=== PATIENT | female | born 1960 | race African-American/Black ===

== ENCOUNTER 2017-09-03 12:07 | Inpatient (IN) | payer OTHER ==
[~2017-09-03] VITALS: Ht 157.5 cm; Wt 88.5 kg
--- NOTE | ~2017-09-03 | EKG ---
[place] [address] [facility] [employer] [address] ELECTROCARDIOGRAM REPORT Name: SHAJI BROWNLEE Room #: 354-P [facility] IN M.R.#: [id number] Admission: 09/03/17 Attend Phys: Richar Cuellar MD Discharge: 09/05/17 Date of : 60 Report #: [id number] THIS REPORT FOR: //name// [facility] ED Test Date: 2017-09-03 Test Time: 13:19:26 Pat Name: SHAJI BROWNLEE Department: Room: [facility] Gender: F Sanitation Engineer: Federica VERMA : 1960 Requested By: Zack Pavon Order Number: [id number] MD: Tyler Santana Measurements Intervals [place] Rate: 63 P: 55 MN: 172 QRS: -5 QRSD: 86 T: -33 QT: 443 QTc: 454 Interpretive Statements Sinus rhythm Left ventricular hypertrophy Abnormal T, consider ischemia, diffuse leads No previous ECG available for comparison Electronically Signed On 09-07-2017 12:56:30 CDT by Tyler Santana [email or web address] <ELECTRONICALLY SIGNED> By: Tyler Santana MD, [facility] 09/07/17 1256 1319 1319 Tyler Santana MD, [facility] /EPI
--- NOTE | ~2017-09-03 | 2DMMODE ---
[facility] [address] [place] [address] 2 D/M-MODE ECHOCARDIOGRAM Name: SHAJI BROWNLEE Room #: 354-P ADM IN M.R.#: [id number] Admission: 09/03/17 Attend Phys: Richar Cuellar MD Discharge: Date of : 60 Date of Service: 09/04/17 1227 Report #: [id number] THIS REPORT FOR: //name// APPROVED REPORT Study performed: 09/04/2017 09:54:16 EXAM: Comprehensive 2D, Doppler, and color-flow Echocardiogram Patient Location: Echo lab Room #: 354 Status: routine BSA: 1.89 HR: 76 bpm BP: 127/67 mmHg Rhythm: NSR Other Information Study Quality: Adequate Indications Syncope Hx: HLP, HTN, DM 2D Dimensions RVDd: 36.83 mm LVEF(%): 63.79 (>50%) IVSd: 12.38 (7-11mm) LVOT Diam: 20.06 (18-24mm) LVDd: 45.27 mm PWd: 11.43 (7-11mm) Ascending Ao: 36.04 (22-36mm) LVDs: 29.63 (25-40mm) Aortic Root: 29.82 mm Davison's LVEF: 63.79 % Volumes Left Atrial Volume (Systole) Single Plane 4CH: 44.90 mL Single Plane 2CH: 62.77 mL LA ESV Index: 31.00 mL/m2 Aortic Valve AoV Peak Benedicto.: 2.02 m/s AO Peak Gr.: 16.27 mmHg LVOT Max P.30 mmHg LVOT Max V: 1.26 m/s ROSANA Vmax: 1.96 cm2 Mitral Valve E/A Ratio: 1.2 [facility] [place] [address] 2 D/M-MODE ECHOCARDIOGRAM Name: KEMCHRISITA ANGELO Room #: 354-[facility] IN .R.#: [id number] Admission: 09/03/17 Attend Phys: Richar Cuellar MD Discharge: Date of : 60 Date of Service: 09/04/17 1227 Report #: [id number] MV Decel. Time: 212.09 ms MV E Max Benedicto.: 0.92 m/s MV A Benedicto.: 0.78 m/s MV PHT: 61.51 ms IVRT: 69.20 ms Pulmonary Valve PV Peak Benedicto.: 1.07 m/s PV Peak Gr.: 4.56 mmHg Pulmonary Vein P Vein S: 0.68 m/s P Vein A: 0.27 m/s P Vein D: 0.39 m/s P Vein A Dur.: 106.1 msec P Vein S/D Ratio: 1.74 Tricuspid Valve TR Peak Benedicto.: 2.92 m/s RAP Estimate: 5.00 mmHg TR Peak Gr.: 34.21 mmHg PA Pressure: 39.00 mmHg Left Ventricle The left ventricle is normal size. Mild concentric left ventricular hypertrophy. The left ventricular systolic function is normal. LVEF is 55-60%. Grade II - pseudonormal filling dynamics. Right Ventricle The right ventricle is normal size. The right ventricular systolic function is normal. Atria The left atrium size is normal. The right atrium size is normal. Aortic Valve The Aortic valve is sclerotic. No aortic regurgitation is present. There is no aortic valvular stenosis. Mitral Valve The mitral valve is normal in structure. Trace to mild mitral regurgitation. No evidence of mitral valve stenosis. Tricuspid Valve The tricuspid valve is normal in structure. Mild tricuspid regurgitation. Estimated PAP 39 mmHg. Pulmonic Valve The pulmonary valve is normal in structure. There is no pulmonic [facility] [address] [place] [address] 2 D/M-MODE ECHOCARDIOGRAM Name: SHAJI BROWNLEE Room #: 354-P [facility] IN [facility]#: [id number] Admission: 09/03/17 Attend Phys: Richar Cuellar MD Discharge: Date of : 60 Date of Service: 09/04/17 1227 Report #: [id number] valvular regurgitation. Great Vessels The aortic root is normal in size. The ascending aorta is normal in size. IVC is normal in size and collapses >50% with inspiration. Pericardium There is no pericardial effusion. <Conclusion> The left ventricle is normal size. LVEF is 55-60%. Grade II - pseudonormal filling dynamics. The right ventricle is normal size. The left atrium size is normal. The Aortic valve is sclerotic. There is no aortic valvular stenosis. Trace to mild mitral regurgitation. Mild tricuspid regurgitation. Estimated PAP 39 mmHg. The aortic root is normal in size. There is no pericardial effusion. <ELECTRONICALLY SIGNED> By: Mark Ferreira MD, FACC 09/04/17 1227 122 26 Mark Ferreira MD, FACC /INF
--- NOTE | ~2017-09-03 | EEG ---
[facility] [address] [place] [address] ELECTROENCEPHALOGRAM Name: SHAJI BROWNLEE Room #: 354-P [facility] IN M.R.#: [id number] Admission: 09/03/17 Attend Phys: Richar Cuellar MD Discharge: 09/05/17 Date of : 60 Report #: [id number] THIS REPORT FOR: //name// CC: Richar Polojennifer Louise DATE OF SERVICE: 09/04/2017 This patient is being evaluated for syncope. EEG was done by placing the electrodes by standard 10-20 system of electrode placement. Both referential and sequential montages were used for recording. Background activity in this patient's EEG is about 11 Hz and 40 microvolt. The patient went to sleep that is associated with bilaterally symmetrical slowing and vertex sharp waves. Photic stimulation is unremarkable. Throughout the record, no active epileptiform activity was noticed. IMPRESSION: This patient's EEG is within normal limit. Thank you very much for this referral. <ELECTRONICALLY SIGNED> By: Alvino Wright MD 09/05/17 2135 0805 [id number] Alvino Wright MD /nt
--- NOTE | ~2017-09-03 | HC ---
[facility] [place] [address] CONSULTATION Name: SHAJI BROWNLEE Room #: 354-P [facility] IN M.R.#: [id number] Admission: 09/03/17 Attend Phys: Richar Cuellar MD Discharge: 09/05/17 Date of : 60 Report #: [id number] THIS REPORT FOR: //name// CC: Richar Louise DATE OF SERVICE: 09/04/2017 HISTORY OF PRESENT ILLNESS: This is a 56-year-old female patient who was evaluated by me because she indicates that she had a history of a fall. She indicates she was walking, felt dizzy and the next thing she knows she was on the floor. She did hit her face. She was evaluated in the emergency room. She said she did not have this kind of episode before. She does not know any tonic-clonic activity, but she was by herself and there was no witness to this episode. REVIEW OF SYSTEMS: Indicate that this patient has diabetes. Her blood sugar sometime can go low. She does not know what her blood sugar was at that time. Her blood pressure also fluctuates. When she came to emergency room, her blood pressure was high. She denies this kind of episode before. She was feeling hungry when this episode happened. She also has a history of hyperlipidemia. She is feeling mostly back to her baseline and she is not having any new eye, ENT, cardiac, respiratory, GI, , musculoskeletal, constitutional, dermatological, hematological, psychiatric, throat, allergic symptom associated with present symptomatology. She is a diabetic. PAST MEDICAL HISTORY: Negative for stroke. FAMILY HISTORY: Negative for early age stroke. SOCIAL HISTORY: She does not drink alcohol. PHYSICAL EXAMINATION: The patient's examinations indicate she is alert, responsive, able to follow simple and complex command. Her speech, concentration, fund of knowledge and memory is at her baseline and she is oriented. Cranial nerve examination 2-12 looks unremarkable. Strength, sensation, reflexes and tone looks symmetrical. There is no cerebellar sign. I could not look at the fundus very well. There is no meningeal sign. There is no carotid bruit. There is no thyroid mass. Pulses appeared to be palpable and she has no edema, cyanosis, or jaundice. She is a reasonably well-developed individual who does not have any dysmorphic features of eyes, ears and face. Her vision and hearing looks adequate. Her last blood pressure was 127/67, pulse is 66, respirations 16, and temperature is 98.8. LABORATORY DATA: Her white count is normal and her sodium is normal, but she has a pretty abnormal lipid profile. She did have a CT scan of the head which [address] [address] CONSULTATION Name: SHAJI BROWNLEE Room #: 354-P [facility] IN M.R.#: [id number] Admission: 09/03/17 Attend Phys: Richar Cuellar MD Discharge: 09/05/17 Date of : 60 Report #: [id number] was unremarkable. IMPRESSION: Most likely her episode was either related to her diabetes or hypertension or any other systemic problem. It is unlikely that it was because of neurological causes. However, she has numerous vascular risk factors and is predisposed to have any of the neurological causes. Because of that, we will go ahead and do some workup. I will go ahead and do an MRI in this patient and an EEG. If that is negative, I do not believe further neurological workup will be indicated in this patient. RECOMMENDATIONS: 1. MRI of the brain. 2. An EEG. 3. I think the emphasis should be on looking for any systemic cause for her problem, especially related to diabetes, hypertension and heart. I will defer that further evaluation and management to you. I discussed all of it with the patient and she is agreeable with this plan. <ELECTRONICALLY SIGNED> By: Alvino Wright MD 09/05/17 2134 0832 0859 Alvino Wright MD /nt
--- NOTE | ~2017-09-03 | HC ---
[facility] [place] [address] [place] [address] CONSULTATION Name: SHAJI BROWNLEE Room #: 354-P [facility] IN M.R.#: [id number] Admission: 09/03/17 Attend Phys: Richar Cuellar MD Discharge: 09/05/17 Date of : 60 Report #: [id number] THIS REPORT FOR: //name// CC: Richar Louise REASON FOR CONSULTATION: Syncope. HISTORY OF PRESENT ILLNESS: This is a very pleasant 56-year-old female patient who has never had a syncopal episode before. She does have diabetes and hypertension as well as dyslipidemia, but was brought to the [facility] Emergency Room following a fall. The patient stated that she had felt hungry, although her blood sugar was 121 at that time and then noted that she was getting somewhat lightheaded. She has noticed her visual field tunneling in and then she passed out and hit the floor quite significantly, damaging her teeth and her nose. She did not have any apparent seizure activity; had no palpitations, chest tightness, heaviness or fullness prior to the episode. Denies any significant other symptoms. She had been taking her medications religiously and did not have any recent fever or chills. Did not notice any increasing shortness of breath or any dependent or non-dependent edema. Her initial ECG showed no abnormalities and her troponins were negative. PAST MEDICAL HISTORY: Significant for: 1. Hypertension. 2. Diabetes mellitus, fairly well controlled. 3. Dyslipidemia, on medications, but not following the diet. ELECTROCARDIOGRAM: Normal sinus rhythm, voltage criteria for LVH, nonspecific ST-T wave changes. ALLERGIES: CODEINE, LACTATE AND PENICILLIN. MEDICATIONS: At home were ibuprofen, hydrocodone, pravastatin, Glucophage, Norvasc, Invokana and ranitidine. SOCIAL HISTORY: The patient does not smoke or use recreational drugs. She does not consume alcohol. She does not follow a particular dietary restriction, although she does do aerobic exercise several times a week without issues. REVIEW OF SYSTEMS: Except for the symptoms previously mentioned and those commensurate with comorbid state, the 10-point review of system is negative. LABORATORY DATA: Laboratories demonstrate potassium of 3.9. BUN and creatinine are 9 and 1.0. Troponin is less than 0.04 and BNP is 30. H and H are 12.7 and 38.5 with a platelet count of 319,000. RADIOLOGIC DATA: Chest x-ray shows mild cardiomegaly without pulmonary edema. [facility] [address] [place] [address] CONSULTATION Name: SHAJI BROWNLEE Room #: 354-P [facility] IN [facility]#: [id number] Admission: 09/03/17 Attend Phys: Richar Cuellar MD Discharge: 09/05/17 Date of : 60 Report #: [id number] scan, noncontrast, does not show any acute abnormalities. PHYSICAL EXAMINATION: GENERAL: Well-developed, well-nourished female resting comfortably, in no acute distress. VITAL SIGNS: Noted and reviewed in the chart. HEENT: Normocephalic, atraumatic. Pupils are equal, round, reactive to light and accommodation. Extraocular muscles are intact. Sclerae and conjunctivae are anicteric. NECK: JVD is normal. Carotid upstrokes are bilaterally symmetrical. No bruits are heard. No thyromegaly. No lymphadenopathy. LUNGS: Clear to auscultation. No wheezes, rhonchi or crackles. No CVA tenderness. CARDIAC: Demonstrates a regular rhythm. Normal first and second heart sounds. No ventricular or atrial gallops, no rubs noted. No murmurs. No lifts or heaves, PMI normal. ABDOMEN: Soft, nontender, nondistended. Normal bowel sounds. EXTREMITIES: Without cyanosis, clubbing or edema. Distal pulses are intact. DTR symmetrical. NEUROLOGIC: Cranial nerves 2-12 are grossly normal and symmetrical. PSYCHIATRIC: Alert, oriented with normal affect. SKIN: Warm and dry. IMPRESSION AND PLAN: 1. Syncope versus a fall. Neurologic workup is being evaluated. Echocardiogram is pending and then we can see whether there are any structural abnormalities. If all this is negative, then we will need to proceed with event monitoring and may be implantable loop recorder at some point in time. She has no significant ischemic etiology, but that may be reasonable to proceed with to exclude an ischemic arrhythmia, although unlikely. We must rule it out. 2. Hypertension. We will get her back on her home meds and monitor her blood pressure to see how well controlled it has been. 3. Diabetes mellitus, as per primary care. <ELECTRONICALLY SIGNED> By: Usman Salter MD 09/14/17 1126 46 05 Usman Salter MD /nt
[~2017-09-03 12:07] MED LIST: HYDROCODONE-AP1 EAC6 PO; IBUPROFEN 800800 MG PO; INVOKANA100 MG PO; METFORMIN HCL500 MG PO; PRAVACHOL 20 MG20 M1; Ranitidine
[2017-09-03 12:08] VITALS: BP 173/94
[2017-09-03] MEDS ORDERED: NORVASC10 MG PO (12:56)
[2017-09-03 14:15] LABS: BASOPHILS 0.8 % (0.0-2.0); EOSINOPHILS 0.1 % (0.0-3.0); HEMATOCRIT 38.5 % (37.0-47.0); HEMOGLOBIN 12.7 gm/dL (12.0-15.0); LYMPHOCYTES 12.7 % (24.0-44.0); MCH 26.5 pg (26.0-34.0); MCHC 32.9 g/dL (28.0-37.0); MCV 80.3 fL (80.0-100.0); MONOCYTES 4.4 % (1.0-8.0); PLATELET COUNT 319 thou/uL (150-400); RDW 15.5 % (10.5-14.5); WBC 9.7 thou/uL (4.0-11.0)
[2017-09-03 14:42] LABS: ANION GAP 8 mmol/L (7-16); BUN 9 mg/dL (7-18); CALCIUM 9.1 mg/dL (8.5-10.1); CHLORIDE 105 mmol/L (98-107); CO2 29 mmol/L (21-32); GLUCOSE 230 mg/dL (74-106); POTASSIUM 3.9 mmol/L (3.5-5.1); SODIUM 142 mmol/L (136-145)
[2017-09-03 14:50] LABS: TROPONIN-I < 0.04 ng/mL (<0.06)
[2017-09-03 16:26] LABS: BE(vivo) -2.7 mmol/L (-2 to +3); HCO3 21.2 mmol/L (22.0-26.0); PCO2 34.1 mmHg (35.0-45.0); PO2 74.7 mmHg (80.0-100.0); pH 7.411 (7.360-7.450); sO2 95.3 % (92.0-98.0)
[2017-09-03 16:43] VITALS: BP 163/75
[2017-09-03 19:45] VITALS: BP 135/82
[2017-09-03 20:05] VITALS: BP 142/74
[2017-09-04] VITALS (7 sets, daily range): BP systolic 116–187; BP diastolic 61–100
[2017-09-04 05:33] LABS: CHOLESTEROL 271 mg/dL (<200); HDL CHOLESTEROL 43 mg/dL (>40); LDL CHOLESTEROL 159 mg/dL (<100); TC:HDL 6.3 Ratio (Not establshd); TRIGLYCERIDE 345 mg/dL (<150); VLDL 69 mg/dL (<40)
[2017-09-04 05:34] LABS: SERUM ASSESSMENT Clear
[2017-09-04 06:09] LABS: GLYCOHEMOGLOBIN (HGB A1C) 9.2 % (4.8-5.6)
[2017-09-05] VITALS (7 sets, daily range): BP systolic 149–161; BP diastolic 84–94
== END 2017-09-05 18:04 | disposition home or self-care (01) | DRG 989 ==
LOC: ER 12:07 → EROBS 15:22 → 3W 17:15
PROVIDERS: Nurse Practitioner
PROC: 0WQ2XZZ Repair Face, External Approach (ICD-10-PCS; principal; 2017-09-03)
DX: R55 Syncope and collapse (principal); E78.5 Hyperlipidemia, unspecified; S01.81XA Laceration without foreign body of other part of head, initial encounter; I10 Essential (primary) hypertension; E11.65 Type 2 diabetes mellitus with hyperglycemia; S01.511A Laceration without foreign body of lip, initial encounter; W18.39XA Other fall on same level, initial encounter; Y93.89 Activity, other specified; Z88.5 Allergy status to narcotic agent; Z88.0 Allergy status to penicillin; Z88.8 Allergy status to other drugs, medicaments and biological substances; Y92.89 Other specified places as the place of occurrence of the external cause; Y99.8 Other external cause status
CPT/HCPCS: 10879